=== PATIENT | female | born 1970 | race Caucasian/White ===

== ENCOUNTER 2019-07-16 05:43 | Emergency (ER) | payer MEDICAID ==
[~2019-07-16] VITALS: Ht 170.2 cm; Wt 58.1 kg
[2019-07-16 05:51] VITALS: BP 150/98
== END 2019-07-16 06:55 | disposition left against medical advice (07) ==
LOC: ER 05:43
DX: H92.09 Otalgia, unspecified ear (principal); Z53.21 Procedure and treatment not carried out due to patient leaving prior to being seen by health care provider

== ENCOUNTER 2019-07-16 10:34 | Emergency (ER) | payer MEDICAID ==
[~2019-07-16] VITALS: Ht 167.6 cm; Wt 58.1 kg
[2019-07-16 12:10] VITALS: BP 148/98
== END 2019-07-16 13:13 | disposition home or self-care (01) ==
LOC: ER 10:34
DX: R21 Rash and other nonspecific skin eruption (principal); F12.10 Cannabis abuse, uncomplicated